=== PATIENT | female | born 1965 | race African-American/Black ===

== ENCOUNTER 2021-08-25 21:24 | Emergency (ER) | payer OTHER ==
[~2021-08-25] VITALS: Ht 167.6 cm; Wt 91.0 kg
[2021-08-25 21:33] VITALS: BP 171/109
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
[2021-08-25] MEDS: IBUPROFEN 600 MG TABLET. PO ONE ×2 (22:50→22:54)
[2021-08-25] MEDS ORDERED: oxyCODONE IR 5 MG TABLET PO PRN (23:00)
[2021-08-25] MEDS ORDERED: ACETAMINOPHEN 500 MG TABLET PO ONE (23:00)
[2021-08-25] MEDS ORDERED: oxyCODONE IR 5 MG TABLET PO ONE (23:15)
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
== END 2021-08-25 23:54 | disposition home or self-care (01) ==
LOC: ER 21:24
DX: S09.90XA Unspecified injury of head, initial encounter (principal); Z98.84 Bariatric surgery status; Z88.1 Allergy status to other antibiotic agents; Z88.8 Allergy status to other drugs, medicaments and biological substances; Y08.89XA Assault by other specified means, initial encounter; Y93.89 Activity, other specified; Y92.89 Other specified places as the place of occurrence of the external cause; Y99.8 Other external cause status
CPT/HCPCS: 70450; 72125; 99284-25; 99285-25